=== PATIENT | female | born 1980 | race African-American/Black ===

== ENCOUNTER 2017-05-30 07:13 | Emergency (ER) | payer SELFPAY ==
[2017-05-30 07:14] VITALS: BP 139/79; PULSE 61; RESP 22; TEMP 98.3; O2SAT 99
[2017-05-30] MEDS ORDERED: CYAN100017 (07:40)
[2017-05-30] MEDS ORDERED: LORazepam 2 MG/ML VIAL IV PUSH ONE (07:45)
[2017-05-30] MEDS ORDERED: SODIUM CHLORIDE 0.9% FLUSH 10 ML FLUSH IVF PRN (07:45)
[2017-05-30 08:02] LABS: AUTOMATED NEUTROPHIL # 3.9 TH/MM3 (1.8-7.7); BASOPHIL # 0.1 TH/MM3 (0-0.2); BASOPHIL % 1.2 % (0.0-2.0); EOSINOPHIL # 0.3 TH/MM3 (0-0.4); EOSINOPHIL % 3.4 % (0.0-4.0); HEMATOCRIT 40.4 % (35.0-46.0); HEMOGLOBIN 13.6 GM/DL (11.6-15.3); LYMPH % 39.4 % (9.0-44.0); LYMPHOCYTE # 3.2 TH/MM3 (1.0-4.8); MEAN CELL VOLUME 84.9 FL (80.0-100.0); MEAN CORPUSCULAR HEMOGLOBIN 28.6 PG (27.0-34.0); MEAN CORPUSCULAR HGB CONC 33.7 % (32.0-36.0); MEAN PLATELET VOLUME 7.8 FL (7.0-11.0); MONO % 8.5 % (0.0-8.0); MONOCYTE # 0.7 TH/MM3 (0-0.9); NEUT % 47.5 % (16.0-70.0); PLATELET COUNT 322 TH/MM3 (150-450); RED BLOOD COUNT 4.76 MIL/MM3 (4.00-5.30); RED CELL DISTRIBUTION WIDTH 14.9 % (11.6-17.2); WHITE BLOOD COUNT 8.2 TH/MM3 (4.0-11.0)
--- NOTE | 2017-05-30 08:09 | RADRPT ---
EXAM DATE/TIME: 05/30/2017 07:45 [place] COMPARISON: No previous studies available for comparison. INDICATIONS : Short of breath. MEDICAL HISTORY : None. SURGICAL HISTORY : None. ENCOUNTER: Initial ACUITY: 1 day PAIN SCORE: 0/10 LOCATION: Bilateral chest FINDINGS: A single view of the chest demonstrates the lungs to be symmetrically aerated without evidence of mas s, infiltrate or effusion. The cardiomediastinal contours are unremarkable. Osseous structures are intact. CONCLUSION: Normal examination. Jamila Hughes MD on May 30, 2017 at 8:03 Board Certified Radiologist. This report was verified electronically.
--- NOTE | 2017-05-30 08:19 | PD ---
HPI . Shortness of breath Chief Complaint: Respiratory Symptoms Time Seen by Provider: 07:32 Travel History International Travel<30 days: No Contact w/Intl Traveler<30days: No History of Present Illness HPI This patient presents with chief complaint shortness of breath. This has been ongoing issue for the past month. She states that she was awakened from sleep gasping for air. She subsequently feels very lightheaded. No modifying factors. Symptoms are mild. She reports an occasional cough and fever. She denies any chronic lung problems. [facility] Past Medical History Anxiety: Yes ?: Unknown LMP: may 2017 Past Surgical History Section: Yes Social History Alcohol Use: Yes (occassionaly ) Tobacco Use: Yes Substance Use: No Allergies-Medications (Allergen,Severity, Reaction): Coded Allergies: No Known Allergies (Unverified , 05/30/17) Reported Meds & Prescriptions Reported Meds & Active Scripts Active Reported Vitamin B-12 (Cyanocobalamin (Vitamin B-12)) 1,000 Mcg Capsule Review of Systems Except as stated in HPI: all other systems reviewed are Neg General / Constitutional: No: Fever, Chills Cardiovascular: No: Chest Pain or Discomfort Respiratory: Positive: Cough, Shortness of Breath Physical Exam Narrative GENERAL: Patient is awake and alert and does not appear distressed. SKIN: warm/dry. Normal color and turgor. HEAD: Normocephalic. Atraumatic EYES: Pupils equal and round. No scleral icterus. No injection or drainage. ENT: No nasal bleeding or discharge. Mucous membranes pink and moist. NECK: Trachea midline. Full range of motion without pain.. CARDIOVASCULAR: Regular rate and rhythm. Heart sounds normal. RESPIRATORY: No accessory muscle use. Clear to auscultation. Breath sounds equal bilaterally. GASTROINTESTINAL: Abdomen soft. Nontender. Bowel sounds present. Nondistended. MUSCULOSKELETAL: No obvious deformities. NEUROLOGICAL: Awake and alert. No obvious cranial nerve deficits. Motor grossly within normal limits. Normal speech. PSYCHIATRIC: Appropriate mood and affect; insight and Data Data Last Documented VS Vital Signs Date Time Temp Pulse Resp B/P (MAP) Pulse Ox O2 Delivery O2 Flow Rate FiO2 05/30/17 08:04 (99) 05/30/17 07:37 70 18 99 05/30/17 07:14 98.3 Orders Orders Complete Blood Count With Diff (05/30/17 07:32) Basic Metabolic Panel (Bmp) (05/30/17 07:32) B-Type Natriuretic Peptide (05/30/17 07:32) D-Dimer (05/30/17 07:32) Troponin I (05/30/17 07:32) Arterial Blood Gas (Abg) (05/30/17 07:32) Iv Access Insert/Monitor (05/30/17 07:32) Electrocardiogram (05/30/17 07:32) Ecg Monitoring (05/30/17 07:32) Oximetry (05/30/17 07:32) Chest, Single Ap (05/30/17 07:32) Sodium Chloride 0.9% Flush (Ns Flush) (05/30/17 07:45) Lorazepam Inj (Ativan Inj) (05/30/17 07:45) Labs Laboratory Tests Test 05/30/17 07:45 05/30/17 07:58 05/30/17 08:40 White Blood Count 8.2 TH/MM3 Red Blood Count 4.76 MIL/MM3 Hemoglobin 13.6 GM/DL Hematocrit 40.4 % Mean Corpuscular Volume 84.9 FL Mean Corpuscular Hemoglobin 28.6 PG Mean Corpuscular Hemoglobin Concent 33.7 % Red Cell Distribution Width 14.9 % Platelet Count 322 TH/MM3 Mean Platelet Volume 7.8 FL Neutrophils (%) (Auto) 47.5 % Lymphocytes (%) (Auto) 39.4 % Monocytes (%) (Auto) 8.5 % Eosinophils (%) (Auto) 3.4 % Basophils (%) (Auto) 1.2 % Neutrophils # (Auto) 3.9 TH/MM3 Lymphocytes # (Auto) 3.2 TH/MM3 Monocytes # (Auto) 0.7 TH/MM3 Eosinophils # (Auto) 0.3 TH/MM3 Basophils # (Auto) 0.1 TH/MM3 CBC Comment DIFF FINAL Differential Comment D-Dimer Quantitative (PE/DVT) 0.29 MG/L FEU B-Type Natriuretic Peptide 20 PG/ML Blood Gas Puncture Site LT RADIAL Blood Gas Patient Temperature 98.6 Blood Gas HCO3 24 mmol/L Blood Gas Base Excess 0.0 mmol/L Blood Gas Oxygen Saturation 93 % Arterial Blood pH 7.39 Arterial Blood Partial Pressure CO2 41 mmHg Arterial Blood Partial Pressure O2 72 mmHG Arterial Blood Oxygen Content 16.7 Vol % Arterial Blood Carboxyhemoglobin 0.8 % Arterial Blood Methemoglobin 0.7 % Blood Gas Hemoglobin 12.8 G/DL Blood Gas Inspired Oxygen 21 % Blood Urea Nitrogen 13 MG/DL Creatinine 0.84 MG/DL Random Glucose 83 MG/DL Calcium Level 8.7 MG/DL Sodium Level 139 MEQ/L Potassium Level 4.1 MEQ/L Chloride Level 106 MEQ/L Carbon Dioxide Level 25.8 MEQ/L Anion Gap 7 MEQ/L Estimat Glomerular Filtration Rate 78 ML/MIN Troponin I LESS THAN 0.02 NG/ML MDM Medical Decision Making Medical Screen Exam Complete: Yes Emergency Medical Condition: Yes Medical Record Reviewed: Yes (no previous visits here) Interpretation(s) NSR. no ST-T changes. normal EKG. Differential Diagnosis Differential diagnosis of dyspnea includes but is not limited to congestive heart failure, pneumonia, wheezing, pneumothorax, pulmonary embolism Narrative Course This patient presents complaining with intermittent dyspnea for the last month. She states that she awakens from sleep acutely dyspneic. She then feels lightheaded. I suspect night terrors. She will be ruled out for PE, pneumonia , ACS, etc. The patient is now resting comfortably. CBC Diagram 05/30/17 07:45 BMP Diagram 05/30/17 08:40 Calcium Level 8.7 trop < 0.02 BNP 20 Last Impressions Chest X-Ray 05/30/17 0732 Signed Impressions: Service Date/Time: Tuesday, May 30, 2017 07:45 - CONCLUSION: Normal examination. Jamila Hughes MD No etiology for dyspnea has been found. She will be discharged to home with instructions to follow up with her primary care physician. Diagnosis Primary Impression: Dyspnea Qualified Codes: R06.00 - Dyspnea, unspecified Patient Instructions: Dyspnea (DC), General Instructions Additional Instructions: Follow-up with your primary care provider Disposition: 01 DISCHARGE HOME Condition: Stable Cookie Foley MD May 30, 2017 08:19
[2017-05-30 09:23] LABS: TROPONIN I LESS THAN 0.02 NG/ML (0.02-0.05)
[2017-05-30 09:27] LABS: BICARBONATE 25.8 MEQ/L (21.0-32.0); BLOOD UREA NITROGEN 13 MG/DL (7-18); CALCIUM 8.7 MG/DL (8.5-10.1); CHLORIDE 106 MEQ/L (98-107); CREATININE 0.84 MG/DL (0.50-1.00); GLOMERULAR FILTRATION RATE 78 ML/MIN (>89); GLUCOSE,RANDOM 83 MG/DL (74-106); SODIUM (NA) 139 MEQ/L (136-145)
--- NOTE | 2017-05-31 18:50 | EKG ---
Date Performed: 05/30/2017 Time Performed: 07:53:24 PTAGE: 36 years EKG: Sinus rhythm NORMAL ECG NO PREVIOUS TRACING DOCTOR: Gabriel Cowart Interpretating Date/Time 05/31/2017 18:49:17
== END 2017-05-30 10:11 | disposition home or self-care (01) ==
LOC: MERGE 07:13 → NEPE 07:13
DX: R06.02 Shortness of breath (principal); Z72.0 Tobacco use
CPT/HCPCS: 36600; 71045; 80048; 82805; 83880; 84484; 85025; 85379; 93005; 96374; 99285; J2060